=== PATIENT | female | born 1960 | race Two or more races ===

== ENCOUNTER 2019-06-11 05:35 | Emergency (ER) | payer OTHER ==
[~2019-06-11] VITALS: Ht 149.9 cm; Wt 72.6 kg
[~2019-06-11 05:35] MED LIST: TESSALON200 MG PO; TUSSI PRES-B L120 M1 PO; ZYRTEC10 M3 PO
[2019-06-11] MEDS ORDERED: PEPCID AC20 MG PO (14:05)
== END 2019-06-11 14:31 | disposition home or self-care (01) ==
LOC: ER 05:35
DX: R10.13 Epigastric pain (principal)

== ENCOUNTER 2019-10-07 01:54 | Emergency (ER) | payer OTHER ==
[~2019-10-07] VITALS: Ht 149.9 cm; Wt 74.8 kg
[~2019-10-07 01:54] MED LIST changes: +PEPCID AC20 MG PO
[2019-10-07] MEDS ORDERED: ZOLOFT50 MG PO (02:12)
[2019-10-07] MEDS ORDERED: RESTORIL30 M1 PO (02:13)
[2019-10-07] MEDS ORDERED: SYNTHROID75 MCG PO (02:13)
[2019-10-07] MEDS ORDERED: PEPCID40 MG PO (06:22)
[2019-10-07] MEDS ORDERED: LEVSIN/SL0.125 MG SL (06:22)
== END 2019-10-07 06:46 | disposition home or self-care (01) ==
LOC: ER 01:54
DX: R10.11 Right upper quadrant pain (principal); R10.13 Epigastric pain

== ENCOUNTER 2019-11-10 23:44 | Emergency (ER) | payer OTHER ==
[~2019-11-10] VITALS: Ht 121.9 cm; Wt 77.1 kg
[~2019-11-10 23:44] MED LIST changes: +LEVSIN/SL0.125 MG SL; +PEPCID40 MG PO; +RESTORIL30 M1 PO; +SYNTHROID75 MCG PO; +ZOLOFT50 MG PO
[2019-11-11] MEDS ORDERED: PEPCID40 MG PO (03:53)
[2019-11-11] MEDS ORDERED: LEVSIN/SL0.125 MG SL (03:53)
== END 2019-11-11 04:05 | disposition home or self-care (01) ==
LOC: ER 23:44
DX: K80.70 Calculus of gallbladder and bile duct without cholecystitis without obstruction (principal); R10.13 Epigastric pain

== ENCOUNTER 2019-12-20 06:00 | Day surgery (SDC) | payer OTHER ==
[2019-12-20] MEDS ORDERED: ULTRACET PO (14:17)
[2019-12-20] MEDS ORDERED: CIPRO500 MG PO (14:17)
[2019-12-20] MEDS ORDERED: PROTONIX40 MG PO (14:17)
== END 2019-12-20 15:20 | disposition home or self-care (01) ==
LOC: CIR.AMB 06:00 → ADM 08:00 → CIR.AMB 08:00
PROVIDERS: ATTEND Surgery
DX: K80.10 Calculus of gallbladder with chronic cholecystitis without obstruction (principal); K66.0 Peritoneal adhesions (postprocedural) (postinfection); K76.0 Fatty (change of) liver, not elsewhere classified; Z20.828 Contact with and (suspected) exposure to other viral communicable diseases